=== PATIENT | male | born 1985 | race Caucasian/White ===

== ENCOUNTER 2017-07-20 16:43 | Emergency (ER) | payer BC ==
[2017-07-20 16:53] VITALS: TEMP 97.5
[2017-07-20] MEDS ORDERED: DIPHENHYDRAMINE 25 MG CAP PO ONE (17:15)
[2017-07-20] MEDS ORDERED: DIPHENHYDRAMINE 25 MG CAP ONE (17:19)
[2017-07-20 17:36] VITALS: BP 128/71; PULSE 74; RESP 20; O2SAT 99
== END 2017-07-20 18:02 | disposition home or self-care (01) ==
LOC: ED 16:43
DX: T63.441A Toxic effect of venom of bees, accidental (unintentional), initial encounter (principal); R42 Dizziness and giddiness; M79.632 Pain in left forearm; R20.2 Paresthesia of skin
CPT/HCPCS: 99282